=== PATIENT | female | born 1980 | race African-American/Black ===

== ENCOUNTER 2019-10-01 16:13 | Emergency (ER) | payer MEDICAID, OTHER ==
[~2019-10-01] VITALS: Ht 167.6 cm; Wt 61.2 kg
[2019-10-01 16:13] VITALS: BP 137/85
[~2019-10-01 16:13] MED LIST: FEOSOL1 TAB ORAL
--- NOTE | 2019-10-01 16:13 | NUR ---
ED Nurse Note: Pt brought in by ambulance d/t possible OD. Per EMS, pt had pinpoint pupils and was unresponsive. EMS gave narcan. Pt is conscious, A+Ox4 upon arrival to ED. Pt denies drug/alcohol use. Pt states that she was "just sleeping and an ambulance showed up." Pt says that she wants to go back home. Respirations even and unlabored on room air. Vitals stable as documented.
--- NOTE | 2019-10-01 16:23 | NUR ---
ED Nurse Note: ED MD @ bedside
--- NOTE | 2019-10-01 17:29 | NUR ---
ED Nurse Note: shoes given to patient
--- NOTE | 2019-10-01 17:35 | NUR ---
ELOPEMENT: Pt did not want to wait for discharge paperwork and eloped from the ED. Pt ambulatory and A+Ox4. No signs of distress noted.
--- NOTE | 2019-10-01 18:03 | Emergency Room Report ---
History of Present Illness General Chief Complaint: Overdose Source: Patient Present Illness HPI 39-year-old female presents ED for overdose. Roommate called 911 stating that patient was very drowsy today. Per EMS patient had pinpoint pupils and was given Narcan. Patient is now alert alert oriented. States she feels fine. Denies any drug use. States she was "tired". Denies alcohol use. Denies trying to hurt her self. Does not know why her roommate called 911. No other aggravating relieving factors. Denies any other associated symptoms Allergies: Coded Allergies: No Known Allergies (Unverified , 09/08/14) Patient History Past Medical History: none Past Surgical History: none Pertinent Family History: none Social History: Denies: smoking, alcohol use, drug use Now: No Immunizations: UTD Reviewed Nursing Documentation: PMH: Agreed; PSxH: Agreed Nursing Documentation-PMH Past Medical History: No Stated History Review of Systems All Other Systems: negative except mentioned in HPI Physical Exam Vital Signs Date Time Temp Pulse Resp B/P (MAP) Pulse Ox O2 Delivery O2 Flow Rate FiO2 10/01/19 16:04 97.3 95 16 137/85 (102) 98 Room Air Sp02 EP Interpretation: reviewed, normal General Appearance: no apparent distress, alert, GCS 15, non-toxic Head: normocephalic, atraumatic Eyes: bilateral eye normal inspection, bilateral eye PERRL ENT: hearing grossly normal, normal pharynx, no angioedema, normal voice Neck: full range of motion, supple/symm/no masses Respiratory: chest non-tender, lungs clear, normal breath sounds, speaking full sentences Cardiovascular #1: regular rate, rhythm, no edema Cardiovascular #2: 2+ carotid (R), 2+ carotid (L), 2+ radial (R), 2+ radial (L) , 2+ dorsalis pedis (R), 2+ dorsalis pedis (L) Gastrointestinal: normal bowel sounds, non tender, soft, non-distended, no guarding, no rebound Rectal: deferred Genitourinary: normal inspection, no CVA tenderness Musculoskeletal: back normal, normal range of motion, gait/station normal, non- tender Neurologic: alert, motor strength/tone normal, oriented x3, sensory intact, responsive, speech normal Psychiatric: judgement/insight normal, memory normal, mood/affect normal, no suicidal/homicidal ideation Reflexes: 3+ bicep (R), 3+ bicep (L), 3+ tricep (R), 3+ tricep (L), 3+ knee (R) , 3+ knee (L) Lymphatic: no adenopathy Medical Decision Making Diagnostic Impression: Primary Impression: Altered level of consciousness ER Course Hospital Course 39-year-old female presents with possible overdose. Awake after Narcan. Clinical course Patient placed on stretcher. Given that patient is able to provide an adequate history, I see no need to check blood work or place an IV. Patient allowed to sleep. My assessment shows no evidence of SI/HI requiring psychiatric evaluation. Patient allowed to rest in now awake alert oriented x3. ambulating without difficulty. Patient observed on housekeeping room attendant with stable vitals. Protecting airway. patient is now ready to discharge. As I am preparing discharge papers patient walks out of ED. Diagnosis - ALOC Safe for discharge for close outpatient follow-up Last Vital Signs Date Time Temp Pulse Resp B/P (MAP) Pulse Ox O2 Delivery O2 Flow Rate FiO2 10/01/19 16:13 97.3 95 16 137/85 98 Room Air Status: improved Disposition: HOME, SELF-CARE Condition: Stable Referrals: Miguel Thompson. [facility] Patient Instructions: Altered Mental Status Samuel Ag MD Oct 01, 2019 18:03
== END 2019-10-01 17:35 | disposition home or self-care (01) ==
LOC: EDBD 16:13 → EMR 17:00
DX: R41.82 Altered mental status, unspecified (principal)
CPT/HCPCS: 99282

== ENCOUNTER 2020-01-14 00:37 | Emergency (ER) | payer MEDICAID, OTHER ==
[~2020-01-14] VITALS: Ht 162.6 cm; Wt 72.6 kg
--- NOTE | 2020-01-14 00:47 | Emergency Room Report ---
History of Present Illness General Chief Complaint: Overdose Source: Patient, EMS Present Illness HPI This is a 39-year-old female with unknown past medical history. She was brought in for with chief plan of drug overdose. She was found in the back of the house passed out. She has a history of cocaine abuse. People that think that she may have used some opiate also. She was not breathing very well and EMS gave her 2 mg of Narcan IM without any relief. When I gave her 2 mg intra- Nasal she did wake up. Here patient states she is wanted to sleep. Admits to alcohol, Xanax and cocaine tonight. Denies any pain medication. No suicidal thoughts homicidal thought. Allergies: Coded Allergies: No Known Allergies (Unverified , 09/08/14) UNABLE TO ASSESS (Unverified , 01/14/20) COVID-19 Screening Contact w/high risk pt: No Recent Travel to affected area: No Experienced COVID-19 symptoms?: No COVID-19 Testing performed TOP LOADER: No Patient History Past Medical History: see triage record, old chart reviewed Past Surgical History: none Pertinent Family History: none Social History: Reports: alcohol use, drug use Now: No Immunizations: other Reviewed Nursing Documentation: PMH: Agreed; PSxH: Agreed Nursing Documentation-PMH Past Medical History Deferred: Pt Cognitively Impaired Past Medical History: Deferred Review of Systems Constitutional: Reports: other Eye: Denies: eye pain, blurred vision ENT: Denies: ear pain, nose congestion, throat swelling Respiratory: Denies: cough, shortness of breath Cardiovascular: Denies: chest pain, palpitations Gastrointestinal: Denies: abdominal pain, diarrhea, nausea, vomiting Musculoskeletal: Denies: back pain, joint pain Skin: Denies: rash Neurological: Denies: headache, numbness Endocrine: Denies: increased thirst, increased urine Hematologic/Lymphatic: Denies: easy bruising All Other Systems: limited - Secondary to mental status Physical Exam Vital Signs Date Time Temp Pulse Resp B/P (MAP) Pulse Ox O2 Delivery O2 Flow Rate FiO2 01/14/20 00:33 97.5 97 12 148/79 (102) 100 Room Air Vitals normal Sp02 EP Interpretation: reviewed, normal General Appearance: well appearing, no apparent distress, other - sleepy Head: normocephalic, atraumatic Eyes: bilateral eye PERRL, bilateral eye EOMI ENT: hearing grossly normal, normal pharynx Neck: full range of motion, supple, no meningismus Respiratory: chest non-tender, lungs clear, normal breath sounds Cardiovascular #1: regular rate, rhythm, no murmur Gastrointestinal: normal bowel sounds, non tender, no mass, no organomegaly, no bruit, non-distended Musculoskeletal: back normal, normal range of motion, gait/station normal Psychiatric: mood/affect normal Medical Decision Making Diagnostic Impression: Primary Impression: Drug overdose Qualified Codes: T50.901A - Poisoning by unspecified drugs, medicaments and biological substances, accidental (unintentional), initial encounter Additional Impression: Altered level of consciousness ER Course Patient presents with altered mental status secondary to drug overdose. No suicidal thought homicidal thought. I suspect is mostly benzo overdose since patient is very sleepy. She slept through the night and felt better in the morning. Wants to go home. There is no criteria for 5150. Her vital signs are otherwise stable. This patient is a chronic risk of self injury due to poor impulse control, limited coping skills, and judgment intermittently impaired by intoxication. I believe that the available clinical evidence to suggest that these characteristics derived primarily from personality disorder and are likely very stable over time. Hospitalization would likely attenuate risk of self-harm only during group home period, without lasting risk reduction. Serious self-harm , while possible, would likely be inadvertent, and because of impulsivity, and foreseeable. For these reasons, I do not believe hospitalization would provide meaningful reduction in risk of self-harm. Last Vital Signs Date Time Temp Pulse Resp B/P (MAP) Pulse Ox O2 Delivery O2 Flow Rate FiO2 01/14/20 00:33 97.5 97 12 148/79 (102) 100 Room Air Status: improved Disposition: HOME, SELF-CARE Condition: Stable Additional Instructions: Abstain from drugs and alcohol. Follow-up with your doctor in 7 days. Go to rehab. Return if worse. Angel Berry MD Jan 14, 2020 00:47
[2020-01-14 00:53] VITALS: BP 148/79
[2020-01-14 02:53] VITALS: BP 107/68
[2020-01-14 05:11] VITALS: BP 101/64
[2020-01-14 05:20] VITALS: BP 101/64
== END 2020-01-14 05:20 | disposition home or self-care (01) ==
LOC: EDBD 00:37 → EMR 01:04
DX: T50.901A Poisoning by unspecified drugs, medicaments and biological substances, accidental (unintentional), initial encounter (principal); X58.XXXA Exposure to other specified factors, initial encounter; Y92.9 Unspecified place or not applicable; R41.82 Altered mental status, unspecified
CPT/HCPCS: 99282